=== PATIENT | female | born 1945 | race Caucasian/White ===

== ENCOUNTER 2017-09-06 19:40 | Observation (INO) | payer MEDICARE, BC ==
[2017-09-06] MEDS ORDERED: Nicardipine 20 MG/200 ML 20 MG/200 ML BAG IV SCH (20:27)
--- NOTE | 2017-09-06 20:30 | ED PDOC ---
HPI:STROKE - Time Time: 20:00 - Historian Historian: Patient - Chief Complaint Chief Complaint: other (Headache, vomiting, and dizziness) - Onset Date: 09/06/17 Time: 18:45 Onset: Hours (x1) - Timing Timing: Currently Symptomatic - Notes: Notes:: 81 year old female with a past medical history of HTN (taking Metoprolol), who presents to the ED due to headache, vomiting, and dizziness x1 hour. Patient reports that 1 hour prior to arrival she had a sudden onset headache and vertiginous dizziness while at a hair salon. States the pain is severe and reports multiple episodes of non-bilious, non-bloody vomiting since onset. Says headache is worse with movement of head. Denies focal weakness, but confirms severe generalized weakness. Also denies chest pain, shortness of breath, numbness, head injury, stomach pain, or any pain elsewhere. States she felt fine prior to onset of symptoms. PMD: Non-[facility] Provider NIHSS Stroke Scale - Date/Time Evaluation Performed Date Performed: 09/06/17 Time Performed: 20:00 When Was NIHSS Performed: Baseline - How Severe is the Stroke Level of Consciousness: 0=Alert LOC to Questions: 0=Both comments correct LOC to commands: 0=Obeys both correctly Best Gaze: 0=Normal Visual: 0=No visual loss Facial: 0=Normal Motor Arm - Left: 0=No drift Motor Arm - Right: 0=No drift Motor Leg - Left: 0=No drift Motor Leg - Right: 0=No drift Limb Ataxia: 0=Absent Sensory: 0=Normal Best Language: 0=No aphasia Dysarthia: 0=Normal articulation Extinction & Inattention (Neglect): 0=Normal, no object Score: 0 Past Medical History Reviewed: Historical Data, Nursing Documentation, Vital Signs Vital Signs: Last Vital Signs Temp 99.3 F 09/06/17 19:44 Pulse 100 H 09/06/17 19:44 Resp 16 09/06/17 19:44 BP 195/84 H 09/06/17 19:44 Pulse Ox 100 09/06/17 19:44 - Medical History PMH: HTN Denies: CVA, TIA - Home Medications Home Medications: Ambulatory Orders Medication Instructions Recorded Aspirin [Aspirin Chewable] 81 mg PO DAILY 09/06/17 Metoprolol Succinate [Toprol XL] 25 mg PO DAILY 09/06/17 - Allergies Allergies/Adverse Reactions: Allergies Allergy/AdvReac Type Severity Reaction Status Date / Time No Known Allergies Allergy Verified 09/06/17 19:48 Review of Systems ROS Statement: Except As Marked, All Systems Reviewed And Found Negative (as per HPI) - Laboratory Results Result Diagrams: 09/06/17 20:29 09/06/17 20:29 - ECG O2 Sat by Pulse Oximetry: 100 (RA) Pulse Ox Interpretation: Normal Medical Decision Making Medical Decision Making: Time: 20:08 Initial Impression: Headache and HTN. Differential diagnoses include, but are not limited to hemorrhagic CVA, hypertensive encephalopathy, vertigo, VBI Initial Plan: --Blood type and screen --CT Head w/o code stroke --EKG --CMP --Hemoglobin A1C --Lipase --Lipid Panel --Magnesium --Phosphorus --Troponin I --CBC w/ differential --PTT --PT --Chest X-Ray --Cardene IV Premix --Zofran 8 mg IV --brand advocate --IV Insertion --Obtain labs STAT --Glucose, Blood, POC --Nursing swallow screen --Vital signs Q15min --Reevaluation Time: 20:38 CT Head Findings: Brain: There is no evidence of intracranial hemorrhage. Extensive benign bilateral globus pallidus calcifications are present. There is mild diffuse cerebral atrophy present. There is mild diffuse heterogeneity of the white matter attenuation, consistent with chronic white matter ischemic changes. The cortical/white matter interfaces are preserved throughout the brain. Ventricles: The ventricular system demonstrates mild diffuse compensatory enlargement. Small partially calcified mass within the inferior fourth ventricle measuring 3 mm ( axial image 11 and sagittal image 34). Bones/joints: Mild osteoarthrosis of the temporomandibular joints. The calvarium and skull base are intact. No acute fracture. Soft tissues: Normal. Vasculature: Atherosclerotic vascular calcification of the V4 segment vertebral and parasellar carotid arteries. Sinuses: Mucosal thickening of the ethmoid and maxillary sinuses. No air-fluid levels. Mastoid air cells: The mastoid air cells are clear. IMPRESSION: 1. No intracranial hemorrhage or other acute intracranial abnormality. 2. Small mass within the inferior aspect of the fourth ventricle. Suggestion of punctate focus of associated calcium. Differential considerations include a subependymoma, ependymoma, aneurysm, or metastatic disease. RECOMMEND contrast- enhanced MRI for further characterization. 3. Mild cortical volume loss. 4. Sequelae of chronic microvascular disease. Time: 21:45 BP slowly resolving with IV medication. Discussed findings with patient. Patient needs hospitalization for hypertensive encephalopathy and possible cerebral mass. Discussed with Dr. Wilson, Medical Service. Scribe Attestation: Documented by Mahesh Banegas, acting as a scribe for Rin Veras MD. Provider Scribe Attestation: All medical record entries made by the Scribe were at my direction and personally dictated by me. I have reviewed the chart and agree that the record accurately reflects my personal performance of the history, physical exam, medical decision making, and the department course for this patient. I have also personally directed, reviewed, and agree with the discharge instructions and disposition. Disposition - Patient ED Disposition Is Patient to be Admitted: Yes - Disposition Disposition Time: 21:45 - Pt Status Changed To: Hospital Disposition Of: Inpatient - Admit Certification Admit to Inpatient:: After my assessment, the patient will require hospitalization for at least two midnights. This is because of the severity of symptoms shown, intensity of services needed, and/or the medical risk in this patient being treated as an outpatient.
[2017-09-06 20:34] LABS: BASO % 0.7 % (0.0-2.0); EOS # 0.1 K/uL (0.0-0.7); EOS % 2.4 % (0.0-4.0); HEMOGLOBIN 12.5 g/dL (12.0-16.0); LYMPH # 1.7 K/uL (1.0-4.3); LYMPH % 28.8 % (20.0-40.0); MEAN CORPUSCULAR HEMOGLOBIN 30.7 pg (27.0-31.0); MEAN CORPUSCULAR HGB CONC 32.7 g/dL (33.0-37.0); MEAN PLATELET VOLUME 7.7 fl (7.2-11.7); MONO # 0.4 K/uL (0.0-0.8); MONO % 7.2 % (0.0-10.0); NEUT # 3.7 K/uL (1.8-7.0); NEUT % 60.9 % (50.0-75.0); NRBC % 0.3 % (0.0-0.0); RBC 4.06 Mil/uL (3.80-5.20); RED CELL DISTRIBUTION WIDTH 12.9 % (11.5-14.5); WHITE BLOOD COUNT 6.1 K/uL (4.8-10.8)
[2017-09-06 20:44] LABS: PARTIAL THROMBOPLASTIN TIME 31.1 Seconds (25.6-37.1); PROTHROMBIN TIME 10.5 Seconds (9.8-13.1)
[2017-09-06 20:54] LABS: ALB/GLOB RATIO 1.2 (1.0-2.1); ALBUMIN 4.3 g/dL (3.5-5.0); ALT/SGPT 44 U/L (9-52); AST/SGOT 39 U/L (14-36); BLOOD UREA NITROGEN 22 mg/dl (7-17); CALCIUM 10.1 mg/dL (8.4-10.2); GFR AFRICAN-AMERICAN > 60; GFR NON-AFRICAN AMERICAN 54; HDL CHOLESTEROL 58 MG/DL (30-70); LIPASE 127 U/L (23-300); MAGNESIUM 1.9 MG/DL (1.6-2.3)
[2017-09-06 20:55] LABS: LDL CHOLESTEROL 141 mg/dL (0-129)
[2017-09-07 06:29] LABS: BASO % 0.4 % (0.0-2.0); HEMOGLOBIN 12.3 g/dL (12.0-16.0); LYMPH % 10.4 % (20.0-40.0); MEAN CORPUSCULAR HEMOGLOBIN 31.1 pg (27.0-31.0); MEAN CORPUSCULAR HGB CONC 33.1 g/dL (33.0-37.0); MEAN PLATELET VOLUME 8.3 fl (7.2-11.7); MONO # 0.7 K/uL (0.0-0.8); MONO % 7.3 % (0.0-10.0); NEUT # 8.2 K/uL (1.8-7.0); NEUT % 81.9 % (50.0-75.0); RBC 3.94 Mil/uL (3.80-5.20); RED CELL DISTRIBUTION WIDTH 12.6 % (11.5-14.5); WHITE BLOOD COUNT 10.1 K/uL (4.8-10.8)
[2017-09-07 06:56] LABS: CALCIUM 10.1 mg/dL (8.4-10.2)
[2017-09-07] MEDS ORDERED: Gadodiamide 287 MG/ML VIAL (15ML) IV ONE (08:32)
--- NOTE | 2017-09-07 08:54 | CT ---
PROCEDURE: CT HEAD WITHOUT CONTRAST. HISTORY: code stroke COMPARISON: None available. TECHNIQUE: Axial computed tomography images were obtained through the head/brain without intravenous contrast. Radiation dose: Total exam DLP = 776.7 mGy-cm. This CT exam was performed using one or more of the following dose reduction techniques: Automated exposure control, adjustment of the mA and/or kV according to patient size, and/or use of iterative reconstruction technique. FINDINGS: HEMORRHAGE: No intracranial hemorrhage. BRAIN: No mass effect or edema. Mild cerebral atrophy. Chronic periventricular white matter microvascular ischemic changes. VENTRICLES: Nonspecific 3 millimeter structure within the 4th ventricle (series 4, image 11). No hydrocephalus. CALVARIUM: Unremarkable. PARANASAL SINUSES: Unremarkable as visualized. No significant inflammatory changes. MASTOID AIR CELLS: Unremarkable as visualized. No inflammatory changes. OTHER FINDINGS: None. IMPRESSION: No acute intracranial pathology. Nonspecific 3 millimeter structure within the 4th ventricle. Contrast-enhanced MRI can be obtained further characterization as clinically warranted.
[2017-09-07] MEDS ORDERED: Metoprolol Succinate 25 mg XL Tab PO SCH (09:00)
[2017-09-07] MEDS ORDERED: Enoxaparin 40 mg Syringe SC SCH (09:00)
--- NOTE | 2017-09-07 10:01 | RAD ---
HISTORY: dizzy COMPARISON: No prior. FINDINGS: LUNGS: No active pulmonary disease. PLEURA: No significant pleural effusion identified, no pneumothorax apparent. CARDIOVASCULAR: Normal. OSSEOUS STRUCTURES: Degenerative changes. VISUALIZED UPPER ABDOMEN: Normal. OTHER FINDINGS: None. IMPRESSION: No active disease.
--- NOTE | 2017-09-07 12:11 | MRI ---
PROCEDURE: MRI of the brain dated 09/07/2017 HISTORY: Headache and dizziness. COMPARISON: Comparison made with prior CT scan brain dated 09/06/2017 TECHNIQUE: Multiplanar, multisequence MR images of the brain were obtained with and without intravenous contrast enhancement. 10 cc Omniscan injected for this procedure. FINDINGS: HEMORRHAGE: No acute parenchymal, subarachnoid or extra-axial hemorrhage. No hemosiderin deposition is identified on gradient echo weighted sequence. . DWI: No evidence of an acute or early subacute infarction seen on diffusion imaging. . BRAIN PARENCHYMA: No evidence of abnormal signal seen within the substance of the brain. Ventricular and sulcal size are within range of normal for this patient's stated age. . 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 ENHANCEMENT: As above. No evidence of unusual meningeal enhancement. . VENTRICLES: No obstructive hydrocephalus. CRANIUM: No acute calvarial small focal polypoid areas ORBITS: Orbits and contents grossly unremarkable PARANASAL SINUSES/MASTOIDS: There is loss of focal polypoid areas of mucosal thickening both maxillary antra. Minimal mucosal thickening noted within the ethmoid air complex. VASCULAR SYSTEM: Visualized major vascular flow voids at skull base patent. . OTHER FINDINGS: None . IMPRESSION: No acute intracranial hemorrhage or infarct. 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 Minor mucoperiosteal inflammatory changes within the maxillary and to a lesser degree ethmoid air complexes. The the the
[2017-09-07 15:47] VITALS: BP 101/58; PULSE 61; RESP 14; TEMP 98.4; O2SAT 98
--- NOTE | 2017-09-07 17:10 | CP.PCM.HP ---
Past Patient History - Past Medical History & Family History Past Medical History?: Yes - Past Social History Smoking Status: Never Smoked - CARDIAC Hx Cardiac Disorders: Yes Hx Hypertension: Yes - PULMONARY Hx Respiratory Disorders: No - NEUROLOGICAL Hx Neurological Disorder: No Hx Transient Ischemic Attacks (TIA): No - HEENT Hx HEENT Problems: No - RENAL Hx Chronic Kidney Disease: No - ENDOCRINE/METABOLIC Hx Endocrine Disorders: No - HEMATOLOGICAL/ONCOLOGICAL Hx Blood Disorders: No Hx AIDS: No Hx Human Immunodeficiency Virus (HIV): No - INTEGUMENTARY Hx Dermatological Problems: No - MUSCULOSKELETAL/RHEUMATOLOGICAL Hx Arthritis: Yes Hx Falls: No Other/Comment: left knee meniscus tear - GENITOURINARY/GYNECOLOGICAL Hx Genitourinary Disorders: No - PSYCHIATRIC Hx Substance Use: No - SURGICAL HISTORY Hx Surgeries: Yes Hx Hysterectomy: Yes - ANESTHESIA Hx Anesthesia: Yes Hx Anesthesia Reactions: No Meds Allergies/Adverse Reactions: Allergies Allergy/AdvReac Type Severity Reaction Status Date / Time No Known Allergies Allergy Verified 09/06/17 19:48 Results - Vital Signs Recent Vital Signs: Last Vital Signs Temp 98.4 F 09/07/17 15:46 Pulse 61 09/07/17 15:46 Resp 14 09/07/17 15:46 BP 101/58 L 09/07/17 15:46 Pulse Ox 98 09/07/17 15:46 - Labs Result Diagrams: 09/07/17 04:34 09/07/17 04:34 Labs: Laboratory Results - last 24 hr 09/06/17 09/06/17 09/06/17 20:11 20:21 20:29 WBC 6.1 RBC 4.06 Hgb 12.5 Hct 38.2 MCV 94.0 MCH 30.7 MCHC 32.7 L RDW 12.9 Plt Count 178 MPV 7.7 Neut % (Auto) 60.9 Lymph % (Auto) 28.8 [place] % (Auto) 7.2 Eos % (Auto) 2.4 Baso % (Auto) 0.7 Neut # 3.7 Lymph # 1.7 Frontier # 0.4 Eos # 0.1 Baso # 0.0 PT INR APTT Sodium Potassium Chloride Carbon Dioxide Anion Gap BUN Creatinine Est GFR ( Amer) Est GFR (Non-Af Amer) POC Glucose (mg/dL) 190 H Random Glucose Hemoglobin A1c Calcium Phosphorus Magnesium Total Bilirubin AST ALT Alkaline Phosphatase Troponin I Total Protein Albumin Globulin Albumin/Globulin Ratio Triglycerides Cholesterol LDL Cholesterol Direct HDL Cholesterol Lipase Vitamin B12 TSH 3rd Generation Blood Type O POSITIVE Antibody Screen Negative BBK History Checked No verified bt 09/06/17 09/06/17 09/06/17 20:29 20:29 20:29 WBC RBC Hgb Hct MCV MCH MCHC RDW Plt Count MPV Neut % (Auto) Lymph % (Auto) [place] % (Auto) Eos % (Auto) Baso % (Auto) Neut # Lymph # Frontier # Eos # Baso # PT 10.5 INR 1.0 APTT 31.1 Sodium 140 Potassium 3.6 Chloride 104 Carbon Dioxide 26 Anion Gap 14 BUN 22 H Creatinine 1.0 Est GFR ( Amer) > 60 Est GFR (Non-Af Amer) 54 POC Glucose (mg/dL) Random Glucose 199 H Hemoglobin A1c 6.0 Calcium 10.1 Phosphorus 3.2 Magnesium 1.9 Total Bilirubin 0.5 AST 39 H ALT 44 Alkaline Phosphatase 61 Troponin I < 0.0120 Total Protein 7.9 Albumin 4.3 Globulin 3.6 Albumin/Globulin Ratio 1.2 Triglycerides 72 Cholesterol 230 H LDL Cholesterol Direct 141 H HDL Cholesterol 58 Lipase 127 Vitamin B12 TSH 3rd Generation Blood Type Antibody Screen BBK History Checked 09/07/17 09/07/17 04:34 04:34 WBC 10.1 D RBC 3.94 Hgb 12.3 Hct 37.0 MCV 94.0 MCH 31.1 H MCHC 33.1 RDW 12.6 Plt Count 173 MPV 8.3 Neut % (Auto) 81.9 H Lymph % (Auto) 10.4 L Frontier % (Auto) 7.3 Eos % (Auto) 0.0 Baso % (Auto) 0.4 Neut # 8.2 H Lymph # 1.0 Frontier # 0.7 Eos # 0.0 Baso # 0.0 PT INR APTT Sodium 140 Potassium 5.1 H Chloride 99 Carbon Dioxide 31 H Anion Gap 15 BUN 22 H Creatinine 1.1 Est GFR ( Amer) 59 Est GFR (Non-Af Amer) 49 POC Glucose (mg/dL) Random Glucose 116 H Hemoglobin A1c Calcium 10.1 Phosphorus Magnesium Total Bilirubin AST ALT Alkaline Phosphatase Troponin I Total Protein Albumin Globulin Albumin/Globulin Ratio Triglycerides Cholesterol LDL Cholesterol Direct HDL Cholesterol Lipase Vitamin B12 865 TSH 3rd Generation 0.13 L Blood Type Antibody Screen BBK History Checked
--- NOTE | 2017-09-07 18:10 | CARD ---
APPROVED REPORT EKG Measurement Heart [id number] <Conclusion> Normal sinus rhythm Nonspecific ST and T wave abnormality Abnormal ECG
--- NOTE | 2017-09-07 23:55 | CP.PCM.DIS ---
Provider - Provider Date of Admission: 09/06/17 21:37 Attending physician: Shalini Wilson MD Time Spent in preparation of Discharge (in minutes): 20 Hospital Course - Lab Results Lab Results: Most Recent Lab Values WBC 10.1 K/uL (4.8-10.8) D 09/07/17 04:34 RBC 3.94 Mil/uL (3.80-5.20) 09/07/17 04:34 Hgb 12.3 g/dL (12.0-16.0) 09/07/17 04:34 Hct 37.0 % (34.0-47.0) 09/07/17 04:34 MCV 94.0 fl (81.0-99.0) 09/07/17 04:34 MCH 31.1 pg (27.0-31.0) H 09/07/17 04:34 MCHC 33.1 g/dL (33.0-37.0) 09/07/17 04:34 RDW 12.6 % (11.5-14.5) 09/07/17 04:34 Plt Count 173 K/uL (130-400) 09/07/17 04:34 MPV 8.3 fl (7.2-11.7) 09/07/17 04:34 Neut % (Auto) 81.9 % (50.0-75.0) H 09/07/17 04:34 Lymph % (Auto) 10.4 % (20.0-40.0) L 09/07/17 04:34 [place] % (Auto) 7.3 % (0.0-10.0) 09/07/17 04:34 Eos % (Auto) 0.0 % (0.0-4.0) 09/07/17 04:34 Baso % (Auto) 0.4 % (0.0-2.0) 09/07/17 04:34 Neut # 8.2 K/uL (1.8-7.0) H 09/07/17 04:34 Lymph # 1.0 K/uL (1.0-4.3) 09/07/17 04:34 [place] # 0.7 K/uL (0.0-0.8) 09/07/17 04:34 Eos # 0.0 K/uL (0.0-0.7) 09/07/17 04:34 Baso # 0.0 K/uL (0.0-0.2) 09/07/17 04:34 PT 10.5 Seconds (9.8-13.1) 09/06/17 20:29 INR 1.0 (0.9-1.2) 09/06/17 20:29 APTT 31.1 Seconds (25.6-37.1) 09/06/17 20:29 Sodium 140 mmol/l (132-148) 09/07/17 04:34 Potassium 5.1 MMOL/L (3.6-5.0) H 09/07/17 04:34 Chloride 99 mmol/L (98-107) 09/07/17 04:34 Carbon Dioxide 31 mmol/L (22-30) H 09/07/17 04:34 Anion Gap 15 (10-20) 09/07/17 04:34 BUN 22 mg/dl (7-17) H 09/07/17 04:34 Creatinine 1.1 mg/dl (0.7-1.2) 09/07/17 04:34 Est GFR ( Amer) 59 09/07/17 04:34 Est GFR (Non-Af Amer) 49 09/07/17 04:34 POC Glucose (mg/dL) 190 mg/dL (65-110) H 09/06/17 20:11 Random Glucose 116 mg/dL (65-105) H 09/07/17 04:34 Hemoglobin A1c 6.0 % (4.2-6.5) 09/06/17 20:29 Calcium 10.1 mg/dL (8.4-10.2) 09/07/17 04:34 Phosphorus 3.2 mg/dl (2.5-4.5) 09/06/17 20:29 Magnesium 1.9 MG/DL (1.6-2.3) 09/06/17 20:29 Total Bilirubin 0.5 mg/dl (0.2-1.3) 09/06/17 20:29 AST 39 U/L (14-36) H 09/06/17 20:29 ALT 44 U/L (9-52) 09/06/17 20:29 Alkaline Phosphatase 61 U/L (38-126) 09/06/17 20:29 Troponin I < 0.0120 ng/mL (0.00-0.120) 09/06/17 20:29 Total Protein 7.9 G/DL (6.3-8.2) 09/06/17 20: Albumin 4.3 g/dL (3.5-5.0) 09/06/17 20: Globulin 3.6 gm/dL (2.2-3.9) 09/06/17 20: Albumin/Globulin Ratio 1.2 (1.0-2.1) 09/06/17 20: Triglycerides 72 mg/DL (0-149) 09/06/17 20: Cholesterol 230 mg/dL (0-199) H 09/06/17 20: LDL Cholesterol Direct 141 mg/dL (0-129) H 09/06/17 20: HDL Cholesterol 58 MG/DL (30-70) 09/06/17 20: Lipase 127 U/L (23-300) 09/06/17 20: Vitamin B12 865 pg/mL (239-931) 09/07/17 04:34 TSH 3rd Generation 0.13 mIU/ML (0.46-4.68) L 09/07/17 04:34 Blood Type O POSITIVE 09/06/17 20:21 Antibody Screen Negative 09/06/17 20:21 BBK History Checked No verified bt 09/06/17 20:21 Discharge Plan - Follow Up Plan Condition: STABLE Disposition: HOME/ ROUTINE Instructions: Vertigo (DC), Chronic Hypertension (DC)
== END 2017-09-07 18:22 | disposition home or self-care (01) ==
LOC: H.ER 19:40 → H.ERHOLD 21:37 → H.TEL 23:24
PROVIDERS: ADMIT Internal Medicine; ATTEND Internal Medicine
DX: R51 Headache (principal); R42 Dizziness and giddiness; I10 Essential (primary) hypertension
CPT/HCPCS: 36415; 70450; 70553; 71045; 80048; 80053; 80061; 82607; 82948; 83036; 83690; 83735; 84100; 84443; 84484; 85025; 85610; 85730; 86850; 86900; 93005; 96374; 99282; A9579; G0378; J1650; J2405